=== PATIENT | female | born 1975 | race Caucasian/White ===

== ENCOUNTER 2023-12-22 09:40 | Emergency (ER) | payer OTHER, SELFPAY ==
--- NOTE | ~2023-12-22 | CT_ITS ---
EXAMINATION: CT abdomen pelvis w con DATE: 12/22/2023 12:57 INDICATION: Left flank pain. Hematuria. TECHNIQUE: Computed tomography (CT) of the abdomen and pelvis was performed with 100 mL Omnipaque 350 intravenous contrast. Automated exposure control and iterative reconstruction technique were employe d. The dose-length product was 543.11 mGy-cm. COMPARISON: None. FINDINGS: The visualized portions of the lung bases are clear without pneumonia or pleural effusion. The heart size is normal. No pericardial effusion. The liver, gallbladder, spleen, pancreas, and adre nal glands are normal. There are cysts in the kidneys measuring up to 13 mm on the left. There is a 3 mm stone in left kidney. There is mild left hydronephrosis and hydroureter. There is a 5 mm stone at left ureterovesicular junction. There are no dilated loops of bowel. The appendix is normal. There a re no pathologically enlarged lymph nodes. There is no free intraperitoneal fluid. There is mild thor acic and lumbar spondylosis. IMPRESSION: 1. 5 mm stone at left ureterovesicular junction with mild left hydronephrosis and hydroureter. 2. 3 mm nonobstructing left kidney stone. Reviewed, dictated and finalized at location A. IMPRESSION: 1. 5 mm stone at left ureterovesicular junction with mild left hydronephrosis a nd hydroureter. 2. 3 mm nonobstructing left kidney stone.
[2023-12-22 10:02] VITALS: BP 94/70; PULSE 78; RESP 18; TEMP 36.3; O2SAT 97
[2023-12-22 11:29] LABS: Basophils Percent Auto 0.5 % (0.2-1.2); Eosinophils Absolute Auto 0.1 K/mm3 (0-0.3); Eosinophils Percent Auto 1.5 % (0-4.4); Hematocrit 40.6 % (37.0-47.0); Immature Granulocyte Absolute 0.02 K/mm3 (0.00-0.031); Immature Granulocyte Percent A 0.3 % (0-0.5); Lymphocytes Absolute Auto 1.69 K/mm3 (0.9-3.2); Lymphocytes Percent Auto 27.9 % (18.3-44.2); Mean Corpuscular HGB Conc 34.5 g/dl (32-36); Mean Corpuscular Hemoglobin 30.6 pg (26-34); Mean Corpuscular Volume 88.6 fl (80-100); Mean Platelet Volume 11.7 fl (7.4-10.4); Monocytes Absolute Auto 0.4 K/mm3 (0.1-0.6); Monocytes Percent Auto 6.4 % (2.6-8.5); Neutrophils Absolute Auto 3.8 K/mm3 (1.3-6.7); Neutrophils Percent Auto 63.4 % (45.5-73.1); Platelet Count Result 179 k/mm3 (150-375); Red Blood Count 4.58 M/mm3 (4.2-5.4); White Blood Count 6.1 K/mm3 (4.5-10.0)
--- NOTE | 2023-12-22 11:31 | ED.ABDPAIN ---
HPI - Abdominal Pain General Chief Complaint: Back Pain/Injury Stated Complaint: L lower back pain Time Seen by Provider: 12/22/23 11:17 Source: patient and old records reviewed Mode of arrival: ambulatory Limitations: no limitations History of Present Illness HPI narrative: Osmel's a 48-year-old female patient presenting to the clinic today with complaints of left back/ flank pain that started approximately 5-6 days ago. She reports she has had 3 scans in the last week. Last CT scan was done yesterday at [facility] and showed a left ovarian cyst, small nonobstructing stones in the left kidney and moderate sternal in the colon with stranding adjacent to the rectum likely due to proctitis. Does also have diverticula without evidence of diverticulitis. She reports she is urinating blood in her urine. Rates the pain currently a 02/26. Related Data Allergies Allergy/AdvReac Type Severity Reaction Status Date / Time Penicillins Allergy Anaphylactic Verified 12/22/23 10:52 Shock Sulfa (Sulfonamide Allergy Hives Verified 12/22/23 10:52 Antibiotics) Review of Systems Review of Systems: Pertinent positives per HPI. Patient denies any fever, chills, rash, headache, visual changes, dizziness, cough, runny nose, sore throat, shortness of breath, chest pain, palpitations, nausea, vomiting, diarrhea, constipation, abdominal pain, or any urinary issues. PMFSH Comments At the time of my signature, I reviewed and agree with the nursing past medical, surgical, social, and family history. There is no relevant family history pertinent to the patient complaint. Exam Narrative: General: Well-developed, well nourished, in no apparent distress. Head: Normocephalic, atraumatic. Cardio: Regular rate and rhythm, s1 and s2 normal, no murmur appreciated. Resp: Clear to auscultation bilaterally, no rhonchi, rales, wheezing or rubs. Abdomen: Soft, pliable, bowel sounds present in all quadrants, non-tender to palpation, no organomegly, no CVAT tenderness. States that beating on her back makes the pain better. Course Course Emergency Course: Portions of this record may have been created with voice recognition software. Vital Signs Vital signs: Vital Signs Temperature 36.3 C L 12/22/23 10:02 Pulse Rate 78 12/22/23 10:02 Respiratory Rate 18 12/22/23 10:02 Blood Pressure 94/70 L 12/22/23 10:02 Pulse Oximetry 97 12/22/23 10:02 Temperature 36.3 C L 12/22/23 10:02 Pulse Rate 70 12/22/23 12:45 Respiratory Rate 22 H 12/22/23 12:45 Blood Pressure 92/65 L 12/22/23 12:45 Pulse Oximetry 98 12/22/23 12:45 Vital signs reviewed MDM - Abdominal Pain MDM Narrative Medical decision making narrative: At the time of visit patient is resting comfortably on the exam table. Patient appears to be nontoxic. Labs: CBC is unremarkable, CMP is unremarkable, urine is dark brown turbid, 2+ protein, 3+ blood, 1+ bili, 1+ leukocyte, greater than 100 red blood cells, 6-10 white blood cells with no bacteria seen. Diagnostics: CT abdomen and pelvis with contrast performed and shows a 5 mm ureteral stone at the left UV junction. Plan: Prescription for ciprofloxacin, [place], Zofran, and Flomax was sent to the pharmacy. Supportive measures were discussed with the patient and they voiced understanding discharge instructions and agrees to treatment plan. Return precautions reviewed Differential Diagnosis Differential diagnosis: Likely abdominal pain, acute appendicitis, calculus of kidney, constipation, diverticulitis, endometriosis, gastroenteritis, pancreatitis and small bowel obstruction Lab Data 12/22/23 11:20 12/22/23 11:20 Labs: Lab Results 12/22/23 12/22/23 Range/Units 11:20 11:41 WBC 6.1 (4.5-10.0) K/mm3 RBC 4.58 (4.2-5.4) M/mm3 Hgb 14.0 (12.0-15.0) g/dL Hct 40.6 (37.0-47.0) % MCV 88.6 (80-100) fl MCH 30.6 (26-34) pg MCHC 34.5 (32-3
[2023-12-22] MEDS: ONDANSETRON INJ 4 MG/2 ML VIAL IV PUSH (11:42)
[2023-12-22] MEDS: MORPHINE SULFATE (*CRX) 2 MG/ML INJ IV PUSH (11:42)
[2023-12-22] MEDS: SODIUM CHLORIDE 0.9% IV 1,000 ML 999 ML IV CONT (11:42)
[2023-12-22 11:48] LABS: Alanine Aminotransferase 11 U/L (6-35); Albumin Level 4.6 g/dL (3.5-5.1); Alkaline Phosphatase 67 U/L (38-126); Anion Gap 6 mmol/L (4-12); Aspartate Amino Transferase 15 U/L (14-36); Bilirubin,Total 0.7 mg/dL (0.2-1.3); Blood Urea Nitrogen 8 mg/dL (7-17); Calcium 9.4 mg/dL (8.4-10.2); Carbon Dioxide 29 mmol/L (22-30); Chloride 105 mmol/L (98-107); Estimated CRCL calculation 91 ml/min; Estimated Glomerular Filt Rate > 60; Glucose 92 mg/dL (65-110); Potassium 3.8 mmol/L (3.4-5.0); Sodium 140 mmol/L (137-145)
[2023-12-22 11:58] LABS: Bacteria Urine None Seen /hpf; Non Pathogenic Casts 0-2; RBC Urine >100 /hpf (0-2); Squamous Epithelial Cell Urine Occasional /hpf (Few)
[2023-12-22 12:02] LABS: Appearance Urine Turbid (Clear); Bilirubin Urine 1+ (Negative); Blood Urine 3+ (Negative); Glucose Urine UA Negative (Negative); Ketones Urine Negative (Negative); Leukocyte Esterase Ur 1+ LEU/UL (Negative); Nitrate Urine Negative (Negative); Protein Urine 2+ mg/dL (Negative); Specific Grav Ur 1.023 (1.001-1.035); Urobilinogen Urine 0.2 mg/dL (<2.0)
[2023-12-22 12:03] LABS: Color Urine Dark Brown (Yellow)
[2023-12-22 12:04] LABS: Add Urine Microscopic? YES
[2023-12-22 12:45] VITALS: BP 92/65; PULSE 70; RESP 22; O2SAT 98
== END 2023-12-22 13:52 | disposition home or self-care (01) ==
PROVIDERS: Emergency Medicine; Emergency Provider Nurse Practitioner Family; PCP Emergency Medicine
DX: N13.2 Hydronephrosis with renal and ureteral calculous obstruction (principal)
CPT/HCPCS: 36415; 74177; 80053; 81001; 81025; 85025; 87086; 96361; 96374; 96375; 99284; J2270; J2405; J7030; Q9967

== ENCOUNTER 2024-02-16 00:24 | Day surgery (SDC) | payer OTHER, SELFPAY ==
[2024-02-13 08:46] VITALS: BMI 26.2
--- NOTE | 2024-02-13 09:09 | PC.NURSE ---
Spoke with PATIENT regarding medication XARELTO. Pt. verbalizes understanding that the last dose of XARELTO is to be taken on 02/13/2024 and the Endoscopist will instruct them when to restart after the procedure.
[2024-02-16 13:07] VITALS: BP 104/75; PULSE 80; RESP 16; TEMP 36.3; O2SAT 100
--- NOTE | 2024-02-16 13:08 | P.PNAN_ITS ---
Anes - Initial Pre Proc Eval Procedure: Operation Date: 02/16/24 15:00 Proposed Procedures p Colonoscopy - Anmol Denise MD Date/Time: 02/16/24 13:08 Surgeon: Anmol Denise MD Pre Op Diagnosis: IBS-C, Other diseases of rectum/anus Patient Data Age: 48 Gender: F Height: 1.69 m Weight: 75 kg Allergies Allergy/AdvReac Type Severity Reaction Status Date / Time Penicillins Allergy Severe Anaphylactic Verified 02/16/24 13:04 Shock Sulfa (Sulfonamide Allergy Severe Hives Verified 02/16/24 13:04 Antibiotics) Home Medications Medication Instructions Recorded Confirmed Type eslicarbazepine 800 mg tablet 1,600 mg PO DAILY 01/10/24 02/16/24 History (Aptiom) rivaroxaban 20 mg tablet (Xarelto) 20 mg PO DAILY 01/10/24 02/16/24 History lubiprostone 8 mcg capsule 8 mcg PO BID #60 caps 01/16/24 Rx (Amitiza) lactulose 10 gram/15 mL oral 20 g (30 mL) PO BID #3,000 mL 01/22/24 02/13/24 Rx solution Patient hx anesthesia problems: none Family hx anesthesia problems: none Results Review: All pre-operative results and documents have been reviewed as part of the pre- operative evaluation. [facility] Past Medical History Medical History (Updated 01/10/24 @ 12:01 by Estella Kaplan APRN) Anxiety COPD (chronic obstructive pulmonary disease) Depression Factor V deficiency Hx of calculus of kidney during Hx of deep venous thrombosis Migraines Seizures Surgical History Surgical History (Updated 01/10/24 @ 11:17 by Estella Kaplan APRN) History of partial hysterectomy Hx of section Social History Social History Smoking packs per day: 2.5 Smoking cigarettes per day: 50.0 Years smoked: 30 Smoking pack-years: 75.00 Smoking status: Never smoker Tobacco type: cigarettes and e-cigarettes/vaping Additional smoking assessment comments: QUIT SIG. 2021 CURRENTLY VAPES-NON NICOTINE Alcohol intake: current Substance use: never Substance use type: does not use Living arrangements: with family Spiritual care concerns: No Anes - Eval Final PreProcedure Day of Procedure 02/16/24 13:08 Patient weight: normal Heart: regular rate and rhythm Lungs: clear to auscultation Airway: Mallampati scale class II (poor dentition) Neurological: alert and oriented Last oral intake: >/= 8 hours ASA classification: III Emergent: no Anesthetic plan: proceed Anesthesia type and monitoring: general GIVS and standard monitoring Results Review: All pre-operative results and documents have been reviewed as part of the pre- operative evaluation. Informed Consent: The patient's anesthetic plan and its attendant risks and benefits were discussed with the patient/family/POA. Questions were solicited and answers provided to the satisfaction of the patient/family/POA.
[2024-02-16] MEDS: LACTATED RINGERS 1,000 ML 150 ML IV CONT (13:19)
--- NOTE | 2024-02-16 13:48 | PM.HPGS ---
History of Present Illness History of Present Illness Consent: Risks, benefits, and alternatives have been discussed and questions answered. Patient agrees to proceed with procedure. Chief complaint: IBS-C, Other diseases of rectum/anus Narrative: Osmel Suarez is a 48 year old female with history of constipation and episode of rectal bleeding, here for colonoscopy Review of Systems Review of Systems: All systems reviewed & are unremarkable except as noted in HPI and below PMFSH Past Medical History Medical History (Updated 02/16/24 @ 13:50 by Anmol Denise MD) Anxiety Constipation COPD (chronic obstructive pulmonary disease) Depression Factor V deficiency Hx of calculus of kidney during Hx of deep venous thrombosis Migraines Seizures Surgical History Surgical History (Updated 01/10/24 @ 11:17 by Estella Kaplan APRN) History of partial hysterectomy Hx of section Social History Social History Smoking packs per day: 2.5 Smoking cigarettes per day: 50.0 Years smoked: 30 Smoking pack-years: 75.00 Smoking status: Never smoker Tobacco type: cigarettes and e-cigarettes/vaping Additional smoking assessment comments: QUIT SIG. 2021 CURRENTLY VAPES-NON NICOTINE Alcohol intake: current Substance use: never Substance use type: does not use Living arrangements: with family Spiritual care concerns: No Meds Home Medications and Allergies Home Medications Medication Instructions Recorded Confirmed Type eslicarbazepine 800 mg tablet 1,600 mg PO DAILY 01/10/24 02/16/24 History (Aptiom) rivaroxaban 20 mg tablet (Xarelto) 20 mg PO DAILY 01/10/24 02/16/24 History lubiprostone 8 mcg capsule 8 mcg PO BID #60 caps 01/16/24 02/16/24 Rx (Amitiza) lactulose 10 gram/15 mL oral 20 g (30 mL) PO BID #3,000 mL 01/22/24 02/16/24 Rx solution Allergies Allergy/AdvReac Type Severity Reaction Status Date / Time Penicillins Allergy Severe Anaphylactic Verified 02/16/24 13:04 Shock Sulfa (Sulfonamide Allergy Severe Hives Verified 02/16/24 13:04 Antibiotics) Vital Signs Vital Signs - 24 hr 02/16/24 13:07 Temperature 97.4 F L Pulse Rate 80 Respiratory Rate 16 Blood Pressure 104/75 Pulse Oximetry 100 Oxygen Delivery Room Air Exam Const: General: comfortable and no acute distress HENMT: Face/Nose/Sinus: Normal nares present Eyes: General: appearance normal, both eyes and all related structures Neck: Neck: no JVD Resp: Auscultation: clear to auscultation bilaterally Cardio: Rate: regular rate Rhythm: regular rhythm GI: Inspection: non-distended GI Palp: Yes Soft to palpation Skin: General skin exam: normal color Neuro: General: gait normal Speech: normal speech Extrem: General: normal to inspection Psych: Mental Status: mental status grossly normal Assessment and Plan Assessment and plan (1) Constipation: Code(s): K59.00 - Constipation, unspecified Status: Acute Assessment and Plan: colonoscopy
[2024-02-16 14:13] VITALS: BP 135/104; PULSE 77; RESP 24; O2SAT 100
[2024-02-16 14:23] VITALS: BP 98/63; PULSE 64; RESP 22; O2SAT 100
[2024-02-16 14:33] VITALS: BP 107/69; PULSE 68; RESP 17; O2SAT 100
== END 2024-02-16 14:45 | disposition home or self-care (01) ==
PROVIDERS: PCP Emergency Medicine; Referring Provider Nurse Practitioner; Visit Provider Internal Medicine Gastroenterology
PROC: 0DJD8ZZ Inspection of Lower Intestinal Tract, Via Natural or Artificial Opening Endoscopic (ICD-10-PCS; CPT 45378; principal; 2024-02-16 15:00)
DX: D12.6 Benign neoplasm of colon, unspecified (principal); K62.1 Rectal polyp; K64.8 Other hemorrhoids; K59.00 Constipation, unspecified; D68.51 Activated protein C resistance; F41.9 Anxiety disorder, unspecified; F32.A Depression, unspecified; J44.9 Chronic obstructive pulmonary disease, unspecified; G40.909 Epilepsy, unspecified, not intractable, without status epilepticus; Z86.718 Personal history of other venous thrombosis and embolism; Z79.01 Long term (current) use of anticoagulants; Z87.891 Personal history of nicotine dependence
CPT/HCPCS: 45385; 88305; J2704; J7120

== ENCOUNTER 2024-05-23 13:06 | Outpatient (CLI) | payer OTHER, SELFPAY ==
--- NOTE | 2024-05-23 15:22 | ECG_ITS ---
Test Date: 2024-05-23 15:34:42 Measurements Intervals [place] Rate: 83 P: 68 TX: 176 QRS: 73 QRSD: 88 T: 71 QT: 361 QTc: 425 Interpretive Statements SINUS RHYTHM No previous ECG available for comparison Electronically Signed On 05-24-2024 12:25:34 [employer]IST by Geovanny Quinn M.D.
== END 2024-05-23 13:07 | disposition home or self-care (01) ==
PROVIDERS: PCP Emergency Medicine; Visit Provider Obstetrics & Gynecology
DX: Z01.818 Encounter for other preprocedural examination (principal); F17.210 Nicotine dependence, cigarettes, uncomplicated
CPT/HCPCS: 93005

== ENCOUNTER 2024-05-29 01:27 | Day surgery (SDC) | payer OTHER, SELFPAY ==
[2024-05-23 11:07] VITALS: BMI 25.4
--- NOTE | 2024-05-23 11:08 | PC.NURSE ---
Report to the Outpatient Waiting Room, entrance under the green pavilion located off [facility], at time _0600_ on date _[id number]_. Planned Procedure Time: _0730_.? Time changes happen often and if your time is changed the preop area will call you the afternoon before. - You and your visitor will be asked to self-screen and do not enter if you have any COVID symptoms. Please call surgeon if you need to reschedule. - A mask is optional within the hospital at this time. Patients may have clear liquids (water, carbonated beverages, clear teas, apple juice) until 3 hours prior to surgery with a maximum of 20 ounces. - No food from midnight until time of surgery and no smoking. This includes no chewing gum, candy or mints. Take only the following medications with a SIP of water on the morning of surgery: __Eslicerbazepine DO NOT STOP ANY OF YOUR OTHER PRESCRIPTION MEDICATIONS PRIOR TO SURGERY EXCEPT THE FOLLOWING Medications to discontinue per physician ___Xarelto___ Date to take last dose____Patient says is stopping 05-24-2024 per 's instructions____ Please no make-up, nail korean, hairspray, perfume, deodorant, or body powder the day of surgery.? No jewelry (including any body piercings) or valuables the day of surgery, leave them at home.? Please take a shower or bath the night before, or the morning of, surgery with an antibacterial soap.? Wear comfortable, loose fitting clothing.? - Jewelry must be removed prior to entering the operating room.? Rings and piercings that are not removed may be cut off. - The hospital will not accept responsibility for valuables.? - Please leave all valuables, including medications, at home the day of surgery. If you are going home after surgery, a licensed food service driver must drive you home.? - NO public transportation without another adult if you receive anesthesia. - We recommend that an adult stay with you for 24 hours following discharge. - We also recommend that you do not drive, make important decision, drink alcoholic beverages, or take any drugs that were not prescribed by your health care provider for at least 24 hours after your discharge time. Follow any additional instructions given to you from your surgeon. Telephone instructions given to __Osmel__and asked if any additional questions and then verbalized understanding. Patient advised to call surgeon office or pre surgery nurse liaison [phone] if any additional questions.
[2024-05-29] VITALS (10 sets, daily range): BP systolic 93–131; BP diastolic 56–91; PULSE 55–96; RESP 12–20; TEMP 36.3–36.7; O2SAT 97–100; BMI 25.4
[2024-05-29] MEDS: LACTATED RINGERS 1,000 ML 30 ML IV CONT ×2 (06:45→08:28)
[2024-05-29] MEDS: KETOROLAC 15 MG/ML VIAL (*BKC) IV PUSH (07:00)
[2024-05-29] MEDS: ACETAMINOPHEN 500 MG TABLET 1000 MG PO (07:00)
--- NOTE | 2024-05-29 07:04 | P.PNAN_ITS ---
Anes - Initial Pre Proc Eval Procedure: Operation Date: 05/29/24 07:30 Proposed Procedures p Laparoscopic Bilateral Salpingo oophorectomy - Ritchie Joya MD Date/Time: 05/29/24 07:04 Surgeon: Ritchie Joya MD Pre Op Diagnosis: pelvic pain Patient Data Age: 48 Gender: F Height: 1.69 m Weight: 72.8 kg Last Vital Signs Temp 36.7 C 05/29/24 06:28 Pulse 87 05/29/24 06:28 Resp 16 05/29/24 06:28 BP 131/77 05/29/24 06:28 Pulse Ox 99 05/29/24 06:28 Allergies Allergy/AdvReac Type Severity Reaction Status Date / Time Penicillins Allergy Severe Anaphylactic Verified 05/29/24 06:24 Shock Sulfa (Sulfonamide Allergy Severe Hives Verified 05/29/24 06:24 Antibiotics) Home Medications ?Medication ?Instructions ?Recorded ?Confirmed ?Type eslicarbazepine 800 mg tablet 1,600 mg PO DAILY 01/10/24 05/29/24 History (Aptiom) rivaroxaban 20 mg tablet (Xarelto) 20 mg PO DAILY 01/10/24 05/29/24 History alprazolam 0.5 mg tablet 0.5 mg PO TID PRN Anxiety 05/23/24 05/23/24 History Patient hx anesthesia problems: none Family hx anesthesia problems: none Results Review: All pre-operative results and documents have been reviewed as part of the pre- operative evaluation. [facility] Past Medical History Medical History Constipation Migraines Hx of calculus of kidney during COPD (chronic obstructive pulmonary disease) Hx of deep venous thrombosis Factor V deficiency Depression Anxiety Seizures Surgical History Surgical History History of partial hysterectomy Hx of section Social History Social History Smoking packs per day: 2.5 Smoking cigarettes per day: 50.0 Years smoked: 27 Smoking pack-years: 67.50 Smoking status: Current every day smoker Tobacco type: cigarettes and e-cigarettes/vaping Smoking end date: 05/23/22 Additional smoking assessment comments: QUIT SIG. 2021 CURRENTLY VAPES-NON NICOTINE Alcohol intake: former Substance use: current Substance use type: marijuana Other substance usage details: Daily Living arrangements: with family Spiritual care concerns: No Anes - Eval Final PreProcedure Day of Procedure 05/29/24 07:04 Patient weight: normal Heart: regular rate and rhythm Lungs: decreased breath sounds Airway: Mallampati scale class II and special considerations poor dentition Neurological: alert and oriented Last oral intake: >/= 8 hours ASA classification: III Emergent: no Anesthetic plan: proceed Anesthesia type and monitoring: general Results Review: All pre-operative results and documents have been reviewed as part of the pre- operative evaluation. Informed Consent: The patient's anesthetic plan and its attendant risks and benefits were discussed with the patient/family/POA. Questions were solicited and answers provided to the satisfaction of the patient/family/POA.
--- NOTE | 2024-05-29 07:19 | WPDHPUPDATE1 ---
History and Physical Update Update Date/Time: 05/29/24 07:19 To perform salpingo oophorectomy bilaterally History and Physical has been reviewed, including an updated exam of the patient. There are NO changes in the patient's condition. Risks, benefits, and alternatives have been discussed and questions answered. Patient agrees to proceed with procedure.
--- NOTE | 2024-05-29 07:19 | PM.OBPRVD ---
OB - Vaginal Delivery Note Procedure Delivery date: 05/29/24
--- NOTE | 2024-05-29 08:28 | P.OP_ITS ---
Procedure Note - Detailed Date of Procedure 05/29/24 Pre-op Diagnosis pelvic pain Post-op Diagnosis Same ( Adhesions) Procedure Performed Laparoscopic bilateral Oophorectomy, adhesiolysis-30 minutes Surgeon Ritchie Joya MD Anesthesia General Indications Pelvic pain Findings adhesions between the omentum and the anterior abdominal wall in the area of the umbilicus. Scattered small adhesions throughout the abdomen. normal- appearing ovaries Description of Procedure The patient was taken to the operating room. She was prepped and draped in the dorsal lithotomy position after induction general anesthesia. A 5 mm incision was made with a scalpel on the abdominal skin in the left upper quadrant of the abdomen. A 5 mm trocar was inserted into the intra-abdominal cavity under direct visualization the scope. In the same fashion a 11 mm left lower quadrant trocar was inserted and a 11 mm infraumbilical trocar was inserted. adhesions between the omentum to the anterior abdominal wall were with cautery and blunt dissection. Adhesions throughout the abdomen or taken down as well. The left lower quadrant in the right upper quadrant area had adhesions between the bowel on the lateral abdominal wall. Ovaries were raised away from the ureters , the infundibulopelvic ligaments cauterized and transected in bilateral fashion using LigaSure cautery. The paraovarian tissue was cauterized transected LigaSure. The ovaries were amputated. The ovaries were placed in endobag and taken out the left lower quadrant trocar site. The pelvis was irrigated. The pneumoperitoneum was reduced. The trocars were removed. Skin was closed with subcuticular 4 micro. The patient's incisions were covered with Dermabond. She was taken recovery room in stable condition. Sponge lap and needle counts were correct x2. Complications No immediate complications Condition Stable Disposition Same day
[2024-05-29] MEDS: fentaNYL CITRATE INJ (*CRX) 100 MCG/2 ML VIAL 25 MCG IV PUSH ×7 (08:43→09:17)
--- NOTE | 2024-05-29 08:51 | SUR.PHASEI ---
Simple mask removed at 0850.
[2024-05-29] MEDS: HYDROmorphone HCL INJ (*CRX) 1 MG/ML SYR IV PUSH ×2 (09:25→09:39)
[2024-05-29] MEDS: oxyCODONE HCL (*CRX) 5 MG TAB IR PO (10:19)
== END 2024-05-29 10:52 | disposition home or self-care (01) ==
PROVIDERS: PCP Emergency Medicine; Visit Provider Obstetrics & Gynecology
PROC: (CPT 49320; principal; 2024-05-29 07:30)
DX: D27.0 Benign neoplasm of right ovary (principal); D27.1 Benign neoplasm of left ovary; N73.6 Female pelvic peritoneal adhesions (postinfective); G89.18 Other acute postprocedural pain; I10 Essential (primary) hypertension; J44.9 Chronic obstructive pulmonary disease, unspecified; E78.00 Pure hypercholesterolemia, unspecified; K21.9 Gastro-esophageal reflux disease without esophagitis; F41.9 Anxiety disorder, unspecified; D68.2 Hereditary deficiency of other clotting factors; R56.9 Unspecified convulsions; F32.A Depression, unspecified; F17.290 Nicotine dependence, other tobacco product, uncomplicated; F12.90 Cannabis use, unspecified, uncomplicated; Z79.01 Long term (current) use of anticoagulants; Z98.890 Other specified postprocedural states; Z98.51 Tubal ligation status; Z87.442 Personal history of urinary calculi; Z86.718 Personal history of other venous thrombosis and embolism; Z80.51 Family history of malignant neoplasm of kidney; Z80.41 Family history of malignant neoplasm of ovary
CPT/HCPCS: 58661; 88305; A9270; J0330; J1100; J1171; J1885; J2003; J2250; J2405; J2704; J3010; J7030; J7120